=== PATIENT | male | born 1995 | race Caucasian/White ===

== ENCOUNTER 2022-03-25 21:59 | Emergency (ER) | payer SELFPAY ==
[2022-03-25 22:03] VITALS: BP 133/82; RESP 18; TEMP 37.5; O2SAT 98
[2022-03-25 22:19] VITALS: BP 139/76; PULSE 86; RESP 23; O2SAT 97
--- NOTE | 2022-03-25 22:19 | CTR_ITS ---
PROCEDURE INFORMATION: Exam: CT Maxillofacial With Contrast Exam date and time: 03/25/2022 11:10 PM Age: 26 years old Clinical indication: Mass, lump, or swelling; Location not specified; Additional info: Facial swelling TECHNIQUE: Imaging protocol: Computed tomography of the face with contrast. Radiation optimization: All CT scans at this facility use at least one of these dose optimization techniques: automated exposure control; mA and/or kV adjustment per patient size (includes targeted exams where dose is matched to clinical indication); or iterative reconstruction. Contrast material: OMNIPAQUE 350; Contrast volume: 329 ml; Contrast route: INTRAVENOUS (IV); COMPARISON: CT head wo con* [id number] 03/25/2022 11:06 PM RADIATION DOSE METRICS: Total DLP (mGy-cm): 611.75 FINDINGS: Orbital cavities: Orbits are normal. Globes are unremarkable. Bones/joints: See Paranasal sinuses finding. Paranasal sinuses: Bilateral ethmoid and maxillary sinus opacification suggestive of a sinusitis. Soft tissues: Unremarkable. CT/CT facial bones w con [id number] IMPRESSION: 1. Bilateral ethmoid and maxillary sinus opacification suggestive of a sinusitis. 2. Negative for focal fluid collection in the soft tissues of the face.
--- NOTE | 2022-03-25 22:19 | CTR_ITS ---
PROCEDURE INFORMATION: Exam: CT Head Without Contrast Exam date and time: 03/25/2022 11:06 PM Age: 26 years old Clinical indication: Altered mental status/memory loss; Additional info: Facial swelling TECHNIQUE: Imaging protocol: Computed tomography of the head without contrast. Radiation optimization: All CT scans at this facility use at least one of these dose optimization techniques: automated exposure control; mA and/or kV adjustment per patient size (includes targeted exams where dose is matched to clinical indication); or iterative reconstruction. COMPARISON: CT head wo con* [id number] 04/25/2019 2:02 PM RADIATION DOSE METRICS: Total DLP (mGy-cm): 1381.98 FINDINGS: Brain: Normal. No hemorrhage. Unremarkable white matter. No mass effect. Cerebral ventricles: No ventriculomegaly. Paranasal sinuses: Paranasal sinus opacifications. Mastoid air cells: Visualized mastoid air cells are well aerated. Bones/joints: Unremarkable. No acute fracture. Soft tissues: Unremarkable. CT/CT head wo con* [id number] IMPRESSION: Negative for intracranial hemorrhage or mass effect.
[2022-03-25 22:24] LABS: Glucose Point of Care 177 mg/dL (70-110)
[2022-03-25 22:25] LABS: Basophils # 0.1 10^3/uL (0.0-0.1); Basophils % 0.5 %; Eosinophils # 0.3 10^3/uL (0.0-0.8); Eosinophils % 1.9 %; Hematocrit 41.8 % (42.0-52.0); Lymphocytes # 1.6 10^3/uL (0.8-4.8); Lymphocytes % 11.4 %; Mean Corpuscular HGB Conc 33.5 g/dL (30.0-36.0); Mean Corpuscular Hemoglobin 30.9 pg (28.0-34.0); Mean Corpuscular Volume 92.3 fl (80-94); Mean Platelet Volume 10.1 fL (7.4-10.4); Monocytes # 1.3 10^3/uL (0.2-0.9); Monocytes % 9.4 %; Neutrophils % 76.4 %; Nucleated Red Blood Cells % 0 %; Platelet Count 318 10^3/cmm (130-400); Red Blood Count 4.53 10^6/uL (4.1-5.3); Red Cell Distribution Width 12.2 % (12.1-15.1); White Blood Count 13.9 10^3/uL (4.0-10.0)
[2022-03-25] MEDS: naloxone 0.4 mg/ml SDV IVP (22:27)
[2022-03-25 22:29] VITALS: BP 139/76; PULSE 84; RESP 17; O2SAT 97
--- NOTE | 2022-03-25 22:30 | W.ED.GENADLT ---
Documented by User: Bill Chandler MD 03/31/22 22:25 HPI - General Adult General: Chief complaint: Altered Mental Status Stated complaint: right side face weekness Time Seen by Provider: 03/25/22 22:21 History of Present Illness: Patient is a 26-year-old male with history of sinusitis who presents the emergency room with complaints of right-sided facial swelling and pain for the last 2 days. Patient reported that he has subjective fever chills at home and noticed that the right side of his face is more swollen than compared to left. Patient denies any tooth ache, eye pain, vision changes or other focal neurological deficit. Patient tells me that he has a history of the last week. Patient has any history IV drug use or immunocompromise. Onset: 2 days ago Duration:2 days Location:home Severity:moderate Associated symptoms: Deny chest pain, dyspnea, nausea, rash, palpitations or vomiting Review of Systems Const: Denies: fever(s) or chills Eyes: Denies: change in vision ENMT: Reports: other (+R sided facial swelling and pain); Denies: mouth pain Card: Denies: chest pain or palpitations Resp: Denies: dyspnea or non-productive cough GI: Denies: abdominal pain, nausea, vomiting or diarrhea : Denies: dysuria Musc: Denies: extremity pain Skin/Breast: Denies: rash or new lesions Neuro: Denies: weakness in extremities Psych: Reports: other (Normal mood) Rodrick/Lymph: Denies: easy bruising PFSH ED PFSH: Medical History (Updated 03/26/22 @ 00:26 by MARC Khan) No pertinent family history Sinusitis Social History Smoking and tobacco status: never smoked Alcohol intake: never Substance/Drug Use: never Physical Exam Const: COMMON NORMALS: alert HENMT: COMMON NORMALS: atraumatic HEAD & SCALP: atraumatic MOUTH: moist mucous membranes not abnormal OTHER: +R maxillary sinus swelling with moderate tenderness palpation, no periorbital involvement, Eye: COMMON NORMALS: EOMs intact bilaterally and conjunctivae normal CONJUNCTIVA: Yes conjunctivae normal OTHER: 20/50 R, 20/25 L Neck/C-Spine: COMMON NORMALS: full ROM and supple Resp: COMMON NORMALS: normal respiratory effort and clear to auscultation bilaterally AUSCULTATION: clear to auscultation bilaterally Cardio: COMMON NORMALS: regular rate RATE: regular rate GI: COMMON NORMALS: Soft to palpation and non-tender PALPATION: Yes Soft to palpation Extremity: COMMON NORMALS: full ROM Neuro: SENSORIUM/ORIENTATION: Yes alert MOTOR EXAM: No Abnormal motor strength present and Other motor observations present (no focal motor deficits) OTHER: Cranial nerves II through XII grossly intact, strength 5 out of 5 in all extremity Psych: COMMON NORMALS: speech normal SPEECH: Yes normal speech MOOD & AFFECT: Yes euthymic mood Course Vital Signs: Vital signs: Vital Signs Temperature 99.5 F 03/25/22 22:03 Pulse Rate 62 03/26/22 00:35 Respiratory Rate 16 03/26/22 00:35 Blood Pressure 114/58 03/26/22 00:35 Pulse Oximetry 97 03/26/22 00:35 Oxygen Delivery Me thod 03/25/22 22:56 MDM - General Adult Medical Decision Making Patient is a 26-year-old male with history of sinusitis who presents the emergency room with complaints of right-sided facial swelling and pain for the last 2 days. On exam, patient is afebrile but has right-sided facial swelling with moderate tenderness palpation over the right maxillary sinus. There is no periorbital involvement. EMOI intact. Cranial nerves II through XII grossly intact. Vision is 20/50 on the R eye. Lab work showed patient is white count 13.9. Lab Data : 03/25/22 22:18 03/25/22 22:[address] 03/25/22 22:19 IMPRESSION: 1. Bilateral ethmoid and maxillary sinus opacification suggestive of a sinusitis. 2. Negative for focal fluid collection in the soft tissues of the face. Head CT 03/25/22 22:19 IMPRESSION: Negative for intracranial hemorrhage or mass effect. Laboratory Results WBC 13.9 10^3/uL (4.0-10.0) H 03/25/22 22:18 RBC 4.53 10^6/uL (4.1-5.3) 03/25/22 22:18 Hgb 14.0 g/dL (11.7-16.6) 03/25/22 22:18 Hct 41.8 % (42.0-52.0) L 03/25/22 22:18 MCV 92.3 fl (80-94) 03/25/22 22:18 MCH 30.9 pg (28.0-34.0) 03/25/22:18 MCHC 33.5 g/dL (30.0-36.0) 03/25/22:18 RDW 12.2 % (12.1-15.1) 03/25/22:18 Plt Count 318 10^3/cmm (130-400) 03/25/22:18 MPV 10.1 fL (7.4-10.4) 03/25/22:18 Neut % (Auto) 76.4 % 03/25/22:18 Lymph % (Auto) 11.4 % 03/25/22:18 [place] % (Auto) 9.4 % 03/25/22:18 Eos % (Auto) 1.9 % 03/25/22:18 Baso % (Auto) 0.5 % 03/25/22:18 Neut # (Auto) 10.60 10^3/uL (1.8-7.7) H 03/25/22 22:18 Lymph # (Auto) 1.6 10^3/uL (0.8-4.8) 03/25/22 22:18 [place] # (Auto) 1.3 10^3/uL (0.2-0.9) H 03/25/22:18 Eos # (Auto) 0.3 10^3/uL (0.0-0.8) 03/25/22:18 Baso # (Auto) 0.1 10^3/uL (0.0-0.1) 03/25/22:18 Nucleated RBC % (auto) 0 % 03/25/22:18 Nucleated RBCs # 0.0 /100WBC 03/25/22 22:18 Sodium 138 mmol/L (136-145) 03/25/22 22:18 Potassium 4.0 mmol/L (3.5-5.1) 03/25/22 22:18 Chloride 100 mmol/L (98-107) 03/25/22 22:18 Carbon Dioxide 26 mmol/L (22-29) 03/25/22 22:18 Anion Gap 16.0 (5-19) 03/25/22 22:18 BUN 8 mg/dL (6-20) 03/25/22 22:18 Creatinine 0.7 mg/dL (0.7-1.2) 03/25/22 22:18 GFR Calculation 135.3 mL/min (90-130) H 03/25/22 22:18 Glucose 109 mg/dL (65-115) 03/25/22 22:18 POC Glucose 177 mg/dL (70-110) H 03/25/22 22:16 Calculated Osmolality 285 mOsm/kg (285-295) 03/25/22 22:18 Calcium 9.8 mg/dL (8.5-10.5) 03/25/22 22:18 Discharge Plan Discharge Patient Disposition: Home Clinical Impression: Sinusitis Qualifiers: Sinusitis location: unspecified location Chronicity: acute Recurrence: non-recurrent Qualified Code(s): J01.90 - Acute sinusitis, unspecified Prescriptions: New Augmentin 500-125 mg tablet 1 tab PO BID 10 Days Qty: 20 0RF ibuprofen 800 mg tablet 800 mg PO Q8H PRN (Reason: sinus pain/headache) Qty: 15 0RF Discharge Orders: Discharge ED (Routine); Ordered 03/26/22 Ordered By: Tree High Discharge Diet: Advance as tolerated Discharge Activity: Increase activity as tolerated Patient Instructions: Sinusitis (ED) Activity Restrictions/Additional Instructions: Follow-up with medical provider as directed in the next 5 to 7 days reevaluation. Take medications as prescribed. Return to the ER or your medical provider if condition worsens. Please read and understand discharge instructions. Thank you for choosing [facility] for your healthcare needs today. Please realize this is an emergency room and that we are providing you with a medical screening exam and this may not be complete and all inclusive of all the testing and or work up that you may need to determine your ailment or severity of your illness. It is very important that you follow up as instructed or that you return to the Emergency Department should you have concerns or if your condition changes or worsens in any way. Sign Out Sign Out Data: Patient Sign Out occurred on 03/25/22 at 23:00. Patient's care was discussed, and care was transferred from to MARC Khan. Coding Level of Care Code ED [employer] for Chg Fwd Exam Comprehensive Documented by User: MARC Khan 03/26/22 00:26 HPI - General Adult General: Chief complaint: Altered Mental Status Stated complaint: right side face weekness Time Seen by Provider: 03/25/22 22:21 [facility] ED PFSH: Medical History (Updated 03/26/22 @ 00:26 by MARC Khan) No pertinent family history Sinusitis Social History Smoking and tobacco status: never smoked Alcohol intake: never Substance/Drug Use: never Physical Exam Skin: GENERAL SKIN EXAM: dry skin Course Vital Signs: Vital signs: Vital Signs Temperature 99.5 F 03/25/22 22:03 Pulse Rate 62 03/26/22 00:35 Respiratory Rate 16 03/26/22 00:35 Blood Pressure 114/58 03/26/22 00:35 Pulse Oximetry 97 03/26/22 00:35 Oxygen Delivery Me thod 03/25/22 22:56 [facility] - General Adult Medical Decision Making Patient is a 26-year-old male with history of sinusitis who presents the emergency room with complaints of right-sided facial swelling and pain for the last 2 days. On exam, patient is afebrile but has right-sided facial swelling with moderate tenderness palpation over the right maxillary sinus. There is no periorbital involvement. EMOI intact. Cranial nerves II through XII grossly intact. Vision is 20/50 on the R eye. Lab work showed patient is white count 13.9. CT of face showed bilateral ethmoid and maxillary sinus opacification suggestive of sinusitis, negative for any focal fluid collection or abscess of soft tissue. Head CT showed no acute findings. Patient was given IV antibiotics here in the ED. He was diagnosed with sinusitis and was discharged home with a prescription for Augmentin and prednisone. Told to follow-up with PCP within the next week for reevaluation. Return ED precautions given. Patient understood and agreed with plan. Lab Data I reviewed the patient's lab results. : 03/25/22 22:18 03/25/22 22:[address] 03/25/22 22:19 IMPRESSION: 1. Bilateral ethmoid and maxillary sinus opacification suggestive of a sinusitis. 2. Negative for focal fluid collection in the soft tissues of the face. Head CT 03/25/22 22:19 IMPRESSION: Negative for intracranial hemorrhage or mass effect. Laboratory Results WBC 13.9 10^3/uL (4.0-10.0) H 03/25/22 22:18 RBC 4.53 10^6/uL (4.1-5.3) 03/25/22 22:18 Hgb 14.0 g/dL (11.7-16.6) 03/25/22:18 Hct 41.8 % (42.0-52.0) L 03/25/22: MCV 92.3 fl (80-94) 03/25/22 22:18 MCH 30.9 pg (28.0-34.0) 03/25/22:18 MCHC 33.5 g/dL (30.0-36.0) 03/25/22 22:18 RDW 12.2 % (12.1-15.1) 03/25/22:18 Plt Count 318 10^3/cmm (130-400) 03/25/22:18 MPV 10.1 fL (7.4-10.4) 03/25/22 22:18 Neut % (Auto) 76.4 % 03/25/22 22:18 Lymph % (Auto) 11.4 % 03/25/22 22:18 [place] % (Auto) 9.4 % 03/25/22 22:18 Eos % (Auto) 1.9 % 03/25/22 22:18 Baso % (Auto) 0.5 % 03/25/22 22:18 Neut # (Auto) 10.60 10^3/uL (1.8-7.7) H 03/25/22:18 Lymph # (Auto) 1.6 10^3/uL (0.8-4.8) 03/25/22 22:18 [place] # (Auto) 1.3 10^3/uL (0.2-0.9) H 03/25/22 22:18 Eos # (Auto) 0.3 10^3/uL (0.0-0.8) 03/25/22 22:18 Baso # (Auto) 0.1 10^3/uL (0.0-0.1) 03/25/22 22:18 Nucleated RBC % (auto) 0 % 03/25/22 22:18 Nucleated RBCs # 0.0 /100WBC 03/25/22 22:18 Sodium 138 mmol/L (136-145) 03/25/22 22:18 Potassium 4.0 mmol/L (3.5-5.1) 03/25/22 22:18 Chloride 100 mmol/L (98-107) 03/25/22 22:18 Carbon Dioxide 26 mmol/L (22-29) 03/25/22 22:18 Anion Gap 16.0 (5-19) 03/25/22 22:18 BUN 8 mg/dL (6-20) 03/25/22 22:18 Creatinine 0.7 mg/dL (0.7-1.2) 03/25/22 22:18 GFR Calculation 135.3 mL/min (90-130) H 03/25/22 22:18 Glucose 109 mg/dL (65-115) 03/25/22 22:18 POC Glucose 177 mg/dL (70-110) H 03/25/22 22:16 Calculated Osmolality 285 mOsm/kg (285-295) 03/25/22 22:18 Calcium 9.8 mg/dL (8.5-10.5) 03/25/22 22:18 Discharge Plan Discharge Patient Disposition: Home Clinical Impression: Sinusitis Qualifiers: Sinusitis location: unspecified location Chronicity: acute Recurrence: non-recurrent Qualified Code(s): J01.90 - Acute sinusitis, unspecified Prescriptions: New Augmentin 500-125 mg tablet 1 tab PO BID 10 Days Qty: 20 0RF ibuprofen 800 mg tablet 800 mg PO Q8H PRN (Reason: sinus pain/headache) Qty: 15 0RF Discharge Orders: Discharge ED (Routine); Ordered 03/26/22 Ordered By: Tree High Discharge Diet: Advance as tolerated Discharge Activity: Increase activity as tolerated Patient Instructions: Sinusitis (ED) Activity Restrictions/Additional Instructions: Follow-up with medical provider as directed in the next 5 to 7 days reevaluation. Take medications as prescribed. Return to the ER or your medical provider if condition worsens. Please read and understand discharge instructions. Thank you for choosing [facility] for your healthcare needs today. Please realize this is an emergency room and that we are providing you with a medical screening exam and this may not be complete and all inclusive of all the testing and or work up that you may need to determine your ailment or severity of your illness. It is very important that you follow up as instructed or that you return to the Emergency Department should you have concerns or if your condition changes or worsens in any way. Sign Out Sign Out Data: Patient Sign Out occurred on 03/25/22 at 23:00. Patient's care was discussed, and care was transferred from to MARC Khan. Coding Level of Care Code ED [employer] Gun Hand for Belinda Fwd Exam Comprehensive
[2022-03-25 22:46] LABS: Blood Urea Nitrogen 8 mg/dL (6-20); Calcium 9.8 mg/dL (8.5-10.5); Carbon Dioxide 26 mmol/L (22-29); Chloride 100 mmol/L (98-107); Glomerular Filtration Rate 135.3 mL/min (90-130); Glucose 109 mg/dL (65-115); Osmolality Calculated 285 mOsm/kg (285-295); Sodium 138 mmol/L (136-145)
[2022-03-25 22:56] VITALS: BP 138/73; PULSE 94; RESP 17; O2SAT 98
--- NOTE | 2022-03-25 22:57 | PC.NURSE ---
patient laying in bed, grimacing, holding head in hands. sig other at bedside. no changes in assessment.
[2022-03-25] MEDS: ampicillin-sulbactam 3 GM in sodium chloride 0.9% (plus) 50 ML IV (23:03)
--- NOTE | 2022-03-25 23:03 | PC.NURSE ---
patient reports nausea and worsening headache, dr roberts notified awaiting orders.
[2022-03-25] MEDS: iohexol 350 mg/mL 100 mL Btl IV (23:16)
[2022-03-25 23:30] VITALS: BP 133/78; PULSE 90; RESP 24; O2SAT 94
[2022-03-25 23:45] VITALS: BP 125/77; PULSE 107; RESP 23; O2SAT 95
[2022-03-25] MEDS: ketorolac 30 mg/mL INJ IVP (23:46)
[2022-03-25] MEDS: ondansetron 2 mg/ML SDV 2 mL 4 MG IVP (23:46)
[2022-03-26] VITALS: BP 131/68; PULSE 90; RESP 24; O2SAT 96
[2022-03-26 00:35] VITALS: BP 114/58; PULSE 62; RESP 16; O2SAT 97
== END 2022-03-26 00:35 | disposition home or self-care (01) ==
PROVIDERS: Emergency Medicine; Emergency Provider Physician Assistant
DX: J01.90 Acute sinusitis, unspecified (principal)
CPT/HCPCS: 36416; 70450; 70487; 80048; 82962; 85025; 96365; 96375; 99285; J0295; J1885; J2310; J2405; J2930; Q9967

== ENCOUNTER 2023-05-22 13:36 | Emergency (ER) | payer SELFPAY ==
[2023-05-22 13:44] VITALS: BP 115/69; PULSE 73; RESP 16; TEMP 36.8; O2SAT 96; BMI 24.9
--- NOTE | 2023-05-22 13:52 | XRR_ITS ---
PROCEDURE INFORMATION: Exam: XR Chest Exam date and time: 05/22/2023 1:55 PM Age: 27 years old Clinical indication: Shortness of breath; Additional info: SOB TECHNIQUE: Imaging protocol: Radiologic exam of the chest. Views: 1 view. COMPARISON: CR XR chest 1V [id number] 04/25/2019 1:12 PM FINDINGS: Lungs: Unremarkable. No consolidation. Pleural spaces: Unremarkable. No pleural effusion. No pneumothorax. Heart/Mediastinum: Unremarkable. No cardiomegaly. Bones/joints: Unremarkable. XR/XR chest 1V portable [id number] IMPRESSION: No acute findings.
--- NOTE | 2023-05-22 13:58 | ED_ITS ---
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 His pulse ox here is normal denies any worsening imp roving factors. Associated symptoms: Deny abdominal pain, chest pain, fever(s), nausea or vomiting Review of Systems Const: Denies: fever(s), chills, body aches or change in appetite ENMT: Denies: throat pain or dental pain Card: Denies: chest pain Resp: Reports: dyspnea GI: Denies: abdominal pain, nausea, vomiting or diarrhea : Denies: dysuria Musc: Denies: neck pain or back pain Skin/Breast: Denies: rash Neuro: Denies: headache(s) PFSH ED PFSH: Medical History No pertinent family history Sinusitis Social History Smoking and tobacco/nicotine status: never used tobacco/nicotine Alcohol intake: never Substance/Drug Use: never Physical Exam Const: COMMON NORMALS: no acute distress, patient oriented x3 and healthy appearing HENMT: COMMON NORMALS: normocephalic and atraumatic HEAD & SCALP: normocephalic and atraumatic THROAT: posterior oropharynx normal Neck/C-Spine: COMMON NORMALS: full ROM and supple Chest: COMMONS NORMALS: normal inspection of the chest and normal palpation of entire chest wall Resp: COMMON NORMALS: normal respiratory effort, No retractions, No use of accessory muscles and clear to auscultation bilaterally AUSCULTATION: clear to auscultation bilaterally Cardio: COMMON NORMALS: regular rate, regular rhythm and No murmurs present (Cardio) RATE: regular rate RHYTHM: regular rhythm GI: COMMON NORMALS: Normal to inspection, nondistended, normoactive bowel sounds present, Soft to palpation, non-tender and no masses PALPATION: Yes Soft to palpation Extremity: COMMON NORMALS: normal to inspection and full ROM Neuro: COMMON NORMALS: patient oriented x3, moves all extremities and no focal motor deficits Psych: COMMON NORMALS: mental status grossly normal, Normal thought process present and cooperative THOUGHT PROCESS: Normal thought process present Skin: COMMON NORMALS: no rashes or lesions noted and no wounds GENERAL SKIN EXAM: no rashes or lesions noted Course Vital Signs: Vital signs: Vital Signs Temperature 98.2 F 05/22/23 13:44 Pulse Rate 83 05/22/23 14:19 Respiratory Rate 18 05/22/23 14:13 Blood Pressure 119/65 05/22/23 14:09 Pulse Oximetry 98 05/22/23 14:13 Oxygen Delivery Me thod Room Air 05/22/23 14:13 MDM - SOB/Dyspnea Medical Decision Making Patient presents here with chemical irritant inhalation he is well-appearing in no distress he has no signs of foreign bodies swallowed or on his chest x-ray he is stable for discharge she is follow-up PCP and return if worsening. Medical Records I reviewed the patient's medical records. Lab Data Labs/Radiology: Radiology Impressions Chest X-Ray 05/22/23 13:52 IMPRESSION: No acute findings. All radiology interpretation(s) finalized by discharge Discharge Plan Discharge Patient Disposition: Home Clinical Impression: Inhalation injury Condition: Stable Prescriptions: No Action No Known Home Medications Discharge Orders: Discharge ED (Routine); Ordered 05/22/23 Ordered By: Gregor Wyatt Discharge Diet: Advance as tolerated Discharge Activity: Resume usual activity Patient Instructions: Chemical Inhalation Coding Level of Care Code ED [employer] for Belinda Miller
[2023-05-22 14:09] VITALS: BP 119/65; PULSE 70; RESP 16; O2SAT 98
[2023-05-22 14:13] VITALS: PULSE 70; RESP 18; O2SAT 98
[2023-05-22] MEDS: ipratropium-albuterol 3 mL Neb INHALATION (14:13)
[2023-05-22 14:19] VITALS: PULSE 83
[2023-05-22 14:42] VITALS: BP 124/65; PULSE 76; RESP 16; O2SAT 98
== END 2023-05-22 14:50 | disposition home or self-care (01) ==
PROVIDERS: Emergency Provider Emergency Medicine
DX: T17.998A Other foreign object in respiratory tract, part unspecified causing other injury, initial encounter (principal); W44.8XXA Other foreign body entering into or through a natural orifice, initial encounter; Z77.098 Contact with and (suspected) exposure to other hazardous, chiefly nonmedicinal, chemicals
CPT/HCPCS: 71045; 94640; 99283

== ENCOUNTER 2024-12-12 09:43 | Emergency (ER) | payer SELFPAY ==
--- NOTE | 2024-12-12 09:45 | XR_ITS ---
WS: [id number] Exam: XR chest 1V portable [id number] Date/Time of Exam: 12/12/2024 9:45 AM Reason For Exam: chest pain Comparison 05/22/2023. Lungs are fully inflated and clear. Normal heart size. The mediastinum and osseous thorax are unremarkable. No pleural effusions. XR/XR chest 1V portable [id number] IMPRESSION: 1. Negative chest.
[2024-12-12 09:47] VITALS: BP 129/71; PULSE 83; RESP 16; TEMP 37; O2SAT 97; BMI 26.4
--- NOTE | 2024-12-12 09:50 | ECG_ITS ---
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
== END 2024-12-12 10:47 | disposition left against medical advice (07) ==
LOC: ER 09:50
PROVIDERS: Emergency Provider Family Medicine
DX: Z01.89 Encounter for other specified special examinations (principal); R07.9 Chest pain, unspecified; Z53.21 Procedure and treatment not carried out due to patient leaving prior to being seen by health care provider
CPT/HCPCS: 71045; 93005